=== PATIENT | male | born 1945 | race Caucasian/White ===

== ENCOUNTER 2023-12-15 22:52 | Emergency (ER) | payer MEDICARE ==
[~2023-12-15] VITALS: Ht 177.8 cm; Wt 81.6 kg
[2023-12-16] MEDS ORDERED: methylPREDNISolone sod succ 125 MG VIAL IM ONE (02:00)
== END 2023-12-16 02:24 | disposition home or self-care (01) ==
LOC: ED → EDBD 23:03 → ED 23:03
DX: M25.561 Pain in right knee (principal); I10 Essential (primary) hypertension; E11.9 Type 2 diabetes mellitus without complications